=== PATIENT | female | born 1935 | race Hispanic/Latino ===

== ENCOUNTER 2016-11-09 14:08 | Emergency (ER) | payer MEDICARE, OTHER ==
[2016-11-09 15:15] VITALS: RESP 18; TEMP 98; O2SAT 98; BMI 26.5
--- NOTE | 2016-11-09 15:15 | ED PDOC ---
Arrival/HPI - General Time Seen by Provider: 11/09/16 14:33 Historian: Patient - History of Present Illness Narrative History of Present Illness (Text): 11/09/16 14:50 An 81 year old female whose past medical history includes, hypertension and hypercholesterolemia, presents to the emergency department complaining of pain radiating from her left foot to her upper leg since last night. The patient denies headache, dizziness, fevers, chills, nausea, vomiting diarrhea, abdominal pain, chest pain, shortness of breath, or any other complaint. PMD: Dr. Shaikh Time/Duration: Other (Last night) Symptom Course: Unchanged Activities at Onset: Rest, Light Context: Home Past Medical History - Provider Review Nursing Documentation Reviewed: Yes - Infectious Disease Hx of Infectious Diseases: None - Cardiac Hx Cardiac Disorders: Yes Hx Hypertension: Yes - Pulmonary Hx Respiratory Disorders: No - Neurological Hx Neurological Disorder: No - HEENT Hx HEENT Disorder: No - Renal Hx Renal Disorder: No - Endocrine/Metabolic Hx Endocrine Disorders: No - Hematological/Oncological Hx Blood Disorders: No - Integumentary Hx Dermatological Disorder: No - Musculoskeletal/Rheumatological Hx Musculoskeletal Disorders: No - Gastrointestinal Hx Gastrointestinal Disorders: No - Genitourinary/Gynecological Hx Genitourinary Disorders: No - Psychiatric Hx Psychophysiologic Disorder: No Hx Substance Use: No - Past Surgical History Past Surgical History: No Previous - Suicidal Assessment Feels Threatened In Home Enviroment: No Family/Social History - Physician Review Nursing Documentation Reviewed: Yes Family/Social History: No Known Family HX Smoking Status: Former Smoker Hx Alcohol Use: No Hx Substance Use: No Allergies/Home Meds Allergies/Adverse Reactions: Allergies No Known Allergies Allergy (Verified 01/11/16 09:27) Home Medications: Home Meds Medication Instructions Recorded Confirmed Atorvastatin [Lipitor] 40 mg PO DAILY 10/15/13 11/09/16 Bisoprolol/HCTZ [Ziac 10-6.25 mg] 1 tab PO DAILY 01/11/16 11/09/16 amLODIPine [Norvasc] 10 mg PO DAILY 01/11/16 11/09/16 Review of Systems - Physician Review All systems were reviewed & negative as marked: Yes - Review of Systems Constitutional: absent: Fevers, Night Sweats Respiratory: absent: SOB, Cough Cardiovascular: absent: Chest Pain Gastrointestinal: absent: Abdominal Pain, Diarrhea, Nausea, Vomiting Musculoskeletal: Other (left foot pain radiating to upper leg) Neurological: absent: Headache, Dizziness Physical Exam Vital Signs Reviewed: Yes Vital Signs Temp Pulse Resp BP Pulse Ox 11/09/16 17:10 72 18 126/70 98 11/09/16 16:51 75 18 125/69 98 11/09/16 14:09 98.0 F 80 18 127/70 98 Temperature: Afebrile Blood Pressure: Normal Pulse: Regular Respiratory Rate: Normal Appearance: Positive for: Well-Appearing, Non-Toxic, Comfortable Pain Distress: None Mental Status: Positive for: Alert and Oriented X 3 - Systems Exam Head: Present: Atraumatic, Normocephalic Pupils: Present: PERRL Extroacular Muscles: Present: EOMI Conjunctiva: Present: Normal Mouth: Present: Moist Mucous Membranes Neck: Present: Normal Range of Motion Respiratory/Chest: Present: Clear to Auscultation, Good Air Exchange. No: Respiratory Distress, Accessory Muscle Use Cardiovascular: Present: Regular Rate and Rhythm, Normal S1, S2. No: Murmurs Abdomen: Present: Normal Bowel Sounds. No: Tenderness, Distention, Peritoneal Signs Back: Present: Normal Inspection Upper Extremity: Present: Normal Inspection. No: Cyanosis, Edema Lower Extremity: Present: Normal Inspection, Tenderness (Left calf tenderness), Swelling (right and left calf swelling) Neurological: Present: GCS=15, CN II-XII Intact, Speech Normal Skin: Present: Warm, Dry, Normal Color. No: Rashes Psychiatric: Present: Alert, Oriented x 3, Normal Insight, Normal Concentration Medical Decision Making ED Course and Treatment: 11/09/16 15:14 Impression: An 81 year old female with foot pain radiating to the upper leg. Differential Diagnosis included but are not limited to: Lower Extremity DVT Plan: -- Left Lower Extremity US- To rule out Lower Extremity DVT -- Reassess and disposition Progress Notes: Patient did not want anything for pain. She is able to walk with no ataxia. Ultrasound report was negative for DVT. Patient is comfortable and will go home with daughter. She will follow up with her PMD in 1-2days. - RAD Interpretation Radiology Orders: 11/09/16 15:01 DUPLEX LOWER EXTRM VEIN BILAT [US] Stat - Scribe Statement The provider has reviewed the documentation as recorded by the Scribe Karlie Pratt Provider Scribe Attestation: All medical record entries made by the Scribe were at my direction and personally dictated by me. I have reviewed the chart and agree that the record accurately reflects my personal performance of the history, physical exam, medical decision making, and the department course for this patient. I have also personally directed, reviewed, and agree with the discharge instructions and disposition. Disposition/Present on Arrival - Present on Arrival Any Indicators Present on Arrival: No History of DVT/PE: No History of Uncontrolled Diabetes: No Urinary Catheter: No History Surgical Site Infection Following: None - Disposition Have Diagnosis and Disposition been Completed?: Yes Diagnosis: Leg pain Disposition: HOME/ ROUTINE Disposition Time: 17:20 Patient Plan: Discharge Condition: IMPROVED Discharge Instructions (ExitCare): Leg Pain (ED) Additional Instructions: Ms Valenzuela , thank you for letting us take care of you today. Your provider was Dr. Ortiz. You were treated for Leg Pain. The emergency medical care you received today was directed at your acute symptoms. If you were prescribed any medication, please fill it and take as directed. It may take several days for your symptoms to resolve. Return to the Emergency Department if your symptoms worsen, do not improve, or if you have any other problems. Please contact your doctor or call one of the physicians/clinics you have been referred to that are listed on the Patient Visit Information form that is included in your discharge packet. Bring any paperwork you were given at discharge with you along with any medications you are taking to your follow up visit. Our treatment cannot replace ongoing medical care by a primary care provider (PCP) outside of the emergency department. Thank you for allowing the [facility] team to be part of your care today. If you had an X-Ray or CT scan: A Radiologist will review the ED reading if any change in treatment is needed we will contact you. If you had a blood, urine, or wound culture: It will take several days for the results, if any change in treatment is needed we will contact you. If you had an STI test: It will take 48 hours for the results. Please call after 1 week if you have not heard back. Prescriptions: Naproxen 500 mg PO BID PRN #30 tab PRN Reason: Pain, Moderate (4-7) Referrals: Tayo Shaikh MD [Primary Care Provider] - Follow up with primary Forms: [facility] ([place])
[2016-11-09 17:12] VITALS: BP 126/70; PULSE 72
--- NOTE | 2016-11-10 14:24 | US ---
HISTORY: Leg pain and swelling. Evaluate for DVT PHYSICIAN(S): Christo uLgo MD. TECHNIQUE: Duplex sonography and color-flow Doppler with graded compression were used to evaluate the deep venous systems of both lower extremities. FINDINGS: The visualized deep venous systems of both lower extremities are sonographically normal and compressible. Normal wave forms and augmentation are seen. There is no sonographic evidence for deep venous thrombosis in the visualized segments of both lower extremities. IMPRESSION: No sonographic evidence for deep venous thrombosis in the visualized segments of both lower extremities.
== END 2016-11-09 17:20 | disposition home or self-care (01) ==
LOC: ED 14:08
DX: M79.605 Pain in left leg (principal)